=== PATIENT | female | born 1995 | race Caucasian/White ===

== ENCOUNTER 2022-08-19 21:07 | Outpatient (REF) | payer BC, SELFPAY ==
[2022-08-22 10:08] LABS: Age Gdln ACOG Testing Note (.); IGP, rfx Aptima HPV ASCU Note (.)
== END 2022-08-19 21:08 | disposition home or self-care (01) ==
LOC: LAB 21:07
PROVIDERS: Visit Provider Physician Assistant
DX: Z01.419 Encounter for gynecological examination (general) (routine) without abnormal findings (principal)
CPT/HCPCS: G0145